=== PATIENT | female | born 1950 | race Two or more races ===

== ENCOUNTER → 2017-05-05 | Outpatient (CLI) | payer OTHER | END | disposition home or self-care (01) | LOC: RAD.S 15:03 → PTH.S 15:15 → RAD.S 15:30 | DX: M79.661 Pain in right lower leg (principal); M79.662 Pain in left lower leg; E11.9 Type 2 diabetes mellitus without complications; E78.5 Hyperlipidemia, unspecified; I70.201 Unspecified atherosclerosis of native arteries of extremities, right leg; I70.202 Unspecified atherosclerosis of native arteries of extremities, left leg ==